=== PATIENT | male | born 1975 | race Caucasian/White ===

== ENCOUNTER 2016-08-01 19:39 | Emergency (ER) | payer BC ==
--- NOTE | ~2016-08-01 | EKG ---
PATIENT: MIGUEL LUTZ UNIT #: [id number] Ventricular Rate: 73 BPM Atrial Rate: 73 BPM P-R Interval: 182 ms QRS Duration: 100 ms Q-T Interval: 394 ms QTC Calculation(Bezet): 434 ms P Ida: 67 degrees Calculated R Ida: -3 degrees Calculated T Ida: 39 degrees Diagnosis Line: Normal sinus rhythm with sinus arrhythmia Diagnosis Line: Incomplete right bundle branch block Diagnosis Line: Borderline ECG Baseline wander Diagnosis Line: No previous ECGs available Diagnosis Line: Confirmed by SORIN SOSA MD ([id number]) on 08/05/2016 Diagnosis Line: 9:25:34 AM INTERPRETING MD: IAN LUZ
--- NOTE | ~2016-08-01 | EKG ---
PATIENT: MIGUEL LUTZ UNIT #: [id number] Ventricular Rate: 60 BPM Atrial Rate: 60 BPM P-R Interval: 180 ms QRS Duration: 98 ms Q-T Interval: 424 ms QTC Calculation(Bezet): 424 ms P [place]: 44 degrees Calculated R [place]: 4 degrees Calculated T [place]: 48 degrees Diagnosis Line: Normal sinus rhythm Diagnosis Line: Normal ECG Diagnosis Line: When compared with ECG of 01-AUG-2016 18:40, Diagnosis Line: (unconfirmed) Diagnosis Line: No significant change was found Diagnosis Line: Confirmed by SORIN SOSA MD ([id number]) on 08/05/2016 Diagnosis Line: 9:25:35 AM INTERPRETING MD: IAN LUZ
--- NOTE | ~2016-08-01 | CR72 ---
[facility] A Service of [facility] RADIOLOGY TEXT RESULTS PATIENT: MIGUEL LUTZ LOCATION: SED : 71 UNIT #: [id number] AGE: [address]: Wes Adams MD SEX: M ORDER DR: [id number] [address] [address] [id number] MR#: [id number] Acc #: [id number] NAME: MIGUEL LUTZ : 1975 SEX: M STUDY DATE/TIME: 08/01/2016 18:57 UNIT: SED ROOM: STUDY DESCRIPTION: CR Chest Single View Portable Attending Physician: Wes Adams M.D. Ordering Physician: Sotero Bradford M.D. MEDICAL IMAGING REPORT This report is preliminary unless electronic signature is present. EXAM Portable AP view of the chest. COMPARISON None. INDICATION 40-year-old male with chest pain, pressure, nausea and emesis today, 30 minutes prior to arrival. FINDINGS There is poor inspiratory effort. There is at least 1 nodular appearing opacity in the right lung base, possibly representing a prominent bronchovascular structure on end, but a pulmonary nodule cannot be excluded. This has density, that may reflect calcified granuloma. When allowing for low lung volumes, the heart size is within normal limits. There is a hazy attenuation over both lung bases favoring prominent breast shadows. There is a triangular-shaped opacity adjacent to the right heart border which may represent chronic pericardial fat. No evidence of pneumothorax or consolidative pneumonia. IMPRESSION 1. Poor inspiratory effort with bronchovascular crowding. No evidence of acute pneumonia, pneumothorax or pleural effusion. There is a triangular-shaped opacity adjacent to the right heart border which may represent prominent pericardial fat or atelectasis. 2. Nodular opacities seen within both lungs primarily in the lung bases that may represent prominent vessels on end. Consider outpatient followup PA and lateral chest with poor inspiratory effort to exclude pulmonary nodules. Dictated by... [facility] A Service [facility] RADIOLOGY TEXT RESULTS PATIENT: MIGUEL LUTZ LOCATION: SED : 71 UNIT #: [id number] AGE: [address]: Wes Adams MD SEX: M ORDER DR: Paul Mendoza M.D. THIS IS AN ELECTRONICALLY VERIFIED REPORT Paul Mendoza M.D. at 08/05/2016 3:03 PM WINSTON/triny TD: 08/01/2016 21:35 JOB #: [id number] MEDICAL IMAGING REPORT Page 1 of 1
[2016-08-01 19:21] LABS: BASOPHIL# 0.2 X10e3 (0-0.3); BASOPHIL% 1.6 % (0-2.5); EOSINOPHIL# 0.2 X10e3 (0-0.7); EOSINOPHIL% 2.1 % (0.0-7.0); HEMATOCRIT 49.2 % (38.0-50.0); HEMOGLOBIN 16.9 gm/dL (13.0-16.0); LYMPHOCYTE# 4.5 X10e3 (1.0-3.5); LYMPHOCYTE% 40.1 % (17.0-45.0); MEAN CELL VOLUME 86.1 FL (83-96); MEAN CORPUSCULAR HEMOGLOBIN 29.5 PG (28-34); MEAN CORPUSCULAR HGB CONC 34.3 g/dL (30-36); MEAN PLATELET VOLUME 8.9 FL (6.5-11.5); MONOCYTE# 0.6 X10e3 (0-1.0); MONOCYTE% 5.4 % (3.0-12.0); NEUTROPHIL# 5.7 X10e3 (1.5-7.1); NEUTROPHIL% 50.8 % (40-75); PLATELET COUNT 261 X10e3 (140-420); RED BLOOD COUNT 5.71 X10e (3.90-5.60); RED CELL DISTRIBUTION WIDTH 13.7 % (11.0-15.5); WHITE BLOOD COUNT 11.3 X10e3 (4.0-10.5)
[2016-08-01 19:24] LABS: DIFF IND NO
[2016-08-01 19:25] LABS: PROTHROMBIN TIME (PATIENT) 11.3 SECONDS (9.5-12.4)
[2016-08-01 19:33] LABS: PARTIAL THROMBOPLASTIN TIME 23.1 SECONDS (25.6-38.1)
[2016-08-01 19:33] LABS: POC - CKMB <1.0 ng/mL (0.0-7.9); POC - TROPONIN <0.05 ng/mL (<=0.05)
[2016-08-01 19:35] LABS: ALBUMIN SERUM 4.3 g/dL (3.5-5.0); BILIRUBIN, DIRECT 0.1 mg/dL (0.0-0.2); BILIRUBIN,INDIRECT 0.4 mg/dL (0.0-0.9); BILIRUBIN,TOTAL 0.5 mg/dL (0.2-2.0); CALCIUM SERUM 9.3 mg/dL (8.4-10.2); GLOM FILT RATE Estimated 92.4 mL/min (>60); POTASSIUM 3.4 mmol/L (3.5-5.1); PROTEIN TOTAL SERUM 7.4 g/dL (6.0-8.3)
[2016-08-01 21:31] LABS: POC - CKMB 1.5 ng/mL (0.0-7.9); POC - TROPONIN <0.05 ng/mL (<=0.05)
== END 2016-08-01 22:45 ==
LOC: SED 19:39
PROVIDERS: Emergency Medicine
DX: R07.89 Other chest pain (principal); F17.200 Nicotine dependence, unspecified, uncomplicated
CPT/HCPCS: 71010; 80048; 80076; 82553; 83880; 84484; 85025; 85379; 85610; 85730; 93005; 96361; 96374; 96375; 96376; 99291; J2270; J2405